=== PATIENT | male | born 1955 | race Caucasian/White ===

== ENCOUNTER 2017-01-29 10:19 | Inpatient (IN) | payer BC ==
[~2017-01-29] VITALS: Ht 195.6 cm; Wt 66.1 kg
[2017-01-29] VITALS (461 sets, daily range): BP systolic 110–125; BP diastolic 82–92; PULSE 85–107; TEMP 97.2–98.2; O2SAT 88–100
[2017-01-29] MEDS ORDERED: ASPIRIN 81M81 MG/TA2 PO (10:25)
[2017-01-29 11:34] LABS: BASO % 0.3 % (0.0-2.0); EOS % 0.3 % (0-4.0); GRAN # 5.5 (1.4-6.5); GRAN % 71.2 % (42.2-75.2); HEMATOCRIT 38.2 % (42.0-52.0); HEMOGLOBIN 12.9 g/dl (13.5-18.0); LYMPH # 1.4 (1.2-3.4); LYMPH % 18.5 % (20.0-51.0); MEAN CELL VOLUME 90 fl (80.0-100.0); MEAN CORPUSCULAR HEMOGLOBIN 30 pg (27.0-31.0); MEAN CORPUSCULAR HGB CONC 34 g/dl (33.0-37.0); MEAN PLATELET VOLUME 11.1 fl (7.4-10.4); MONO # 0.7 (0.1-0.6); MONO % 8.8 % (1.7-9.3); PLATELET COUNT 197 K/mm3 (130-400); RED BLOOD COUNT 4.27 M/mm3 (4.20-5.60); REDCELL DISTRIBUTION WIDTH-CV 18.8 % (11.5-14.5); WHITE BLOOD COUNT 7.7 K/mm3 (4.8-10.8)
[2017-01-29 11:39] LABS: INR 1.1 (0.8-3.0); PROTHROMBIN TIME 12.6 SECONDS (9.7-12.8)
[2017-01-29 11:45] LABS: ADJUSTED CALCIUM 9.7 mg/dL (8.4-10.2); ALANINE AMINOTRANSFERASE 30 U/L (21-72); ALBUMIN 4.3 gm/dL (3.5-5.0); ALKALINE PHOSPHATASE 85 U/L (50-136); ANION GAP 9 mmol/L (7-16); BILIRUBIN,TOTAL 2.4 mg/dL (0.0-1.0); BLOOD UREA NITROGEN 13 mg/dL (9-20); CALCIUM 9.9 mg/dL (8.4-10.2); CARBON DIOXIDE 24 mmol/L (22-30); CHLORIDE 108 mmol/L (98-107); CREATININE, serum 0.81 mg/dL (0.66-1.25); GLUCOSE 85 mg/dL (74-106); POTASSIUM 4.4 mmol/L (3.4-5.0); SODIUM 140 mmol/L (137-145); TOTAL PROTEIN 7.3 gm/dL (6.4-8.2)
[2017-01-29 11:53] LABS: B-TYPE NATRIURETIC PEPTIDE 1460 pg/mL (0-125)
[2017-01-29 12:00] LABS: TROPONIN-I < 0.012 ng/mL (0.000-0.034)
[2017-01-30] VITALS (339 sets, daily range): BP systolic 115–147; BP diastolic 62–93; PULSE 56–109; TEMP 97.4–98.7; O2SAT 92–100
[2017-01-31] VITALS (10 sets, daily range): BP systolic 118–159; BP diastolic 68–91; PULSE 54–127; TEMP 97.7–99.2
[2017-02-01 04:18] VITALS: BP 130/88; PULSE 116; TEMP 98.1
[2017-02-01 07:28] VITALS: BP 123/83; PULSE 100; TEMP 98.1
[2017-02-01 08:23] LABS: INR 1.2 (0.8-3.0); PROTHROMBIN TIME 13.3 SECONDS (9.7-12.8)
[2017-02-01 08:25] LABS: PARTIAL THROMBOPLASTIN TIME 32.7 SECONDS (26.0-37.0)
[2017-02-01 08:27] LABS: CALCIUM 10.2 mg/dL (8.4-10.2); CREATININE, serum 0.91 mg/dL (0.66-1.25); POTASSIUM 4.4 mmol/L (3.4-5.0)
[2017-02-01 12:19] VITALS: BP 121/72; PULSE 59; TEMP 98
[2017-02-01] MEDS ORDERED: BETAPACE 80MG80 MG PO (12:54)
[2017-02-01] MEDS ORDERED: ELIQUIS 5MG PO (12:54)
== END 2017-02-01 14:22 | disposition home or self-care (01) | DRG 308 ==
LOC: COL.ER 10:19 → MEDICAL 12:10 → ICU 12:10 → MEDICAL 01-30 13:00
PROVIDERS: Emergency Medicine; Internal Medicine Cardiovascular Disease
PROC: 5A2204Z Restoration of Cardiac Rhythm, Single (ICD-10-PCS; principal; 2017-01-30)
PROC: 5A2204Z Restoration of Cardiac Rhythm, Single (ICD-10-PCS; 2017-02-01)
DX: I48.0 Paroxysmal atrial fibrillation (principal); J81.0 Acute pulmonary edema; F17.210 Nicotine dependence, cigarettes, uncomplicated
CPT/HCPCS: 99222-AI; 99232-AI; 99233-AI; 99239; A9502; G9654; J1160; J1650; J1940; J2250; J2704; J2785; J3010; J7050; J7120

== ENCOUNTER 2019-02-05 06:10 | Inpatient (IN) | payer BC, MEDICARE ==
[~2019-02-05] VITALS: Ht 195.6 cm; Wt 72.7 kg
[~2019-02-05 06:10] MED LIST: ASPIRIN 81M81 MG/TA2 PO; BETAPACE 80MG80 MG PO; ELIQUIS 5MG PO
[2019-02-05] MEDS ORDERED: ASPIRIN E.C. 8181 MG PO (06:40)
[2019-02-05] MEDS ORDERED: PLAVIX 75MG TAB75 MG PO (06:40)
[2019-02-05] MEDS ORDERED: LIPITOR20 MG PO (06:41)
[2019-02-05 06:54] LABS: HEMOGLOBIN 11.1 g/dl (13.5-18.0); MEAN CELL VOLUME 88 fl (80.0-100.0); MEAN CORPUSCULAR HEMOGLOBIN 30 pg (27.0-31.0); MEAN CORPUSCULAR HGB CONC 34 g/dl (33.0-37.0); MEAN PLATELET VOLUME 11.2 fl (7.4-10.4); PLATELET COUNT 202 K/mm3 (130-400); REDCELL DISTRIBUTION WIDTH-CV 18.2 % (11.5-14.5)
[2019-02-05 06:58] LABS: INR 1.2 (0.8-3.0); PROTHROMBIN TIME 14.5 SECONDS (9.7-12.8)
[2019-02-05 07:00] LABS: PARTIAL THROMBOPLASTIN TIME 34.9 SECONDS (26.0-37.0)
[2019-02-05 07:02] LABS: HEMATOCRIT 32.6 % (42.0-52.0)
[2019-02-05 07:03] LABS: ALBUMIN 4.4 gm/dL (3.5-5.0); BILIRUBIN,TOTAL 1.1 mg/dL (0.0-1.0); CALCIUM 9.9 mg/dL (8.4-10.2); CREATININE, serum 0.74 (0.66-1.25); MAGNESIUM 1.7 mg/dL (1.6-2.3); POTASSIUM 4.5 mmol/L (3.4-5.0); TOTAL PROTEIN 7.3 gm/dL (6.4-8.2)
[2019-02-05 07:53] LABS: BAND 3 % (0-10); EOSINOPHIL 1 % (0-4); NEUTROPHILS 65 % (42.0-75.2)
[2019-02-05 07:54] LABS: LYMPHOCYTE 25 % (20.0-51.0)
[2019-02-05 07:56] LABS: ANISOCYTOSIS 2+; OVALOCYTES 1+
[2019-02-05 07:57] LABS: PLATELET ESTIMATE NORMAL (NORMAL)
[2019-02-05 08:23] LABS: COLLECTION METHOD CLEAN CATCH
[2019-02-05 08:28] LABS: PH 5 (5-8); SQUAMOUS EPITHELIAL None Seen /hpf; URINE APPEARANCE Clear; URINE BACTERIA None Seen /hpf; URINE BILIRUBIN Negative (NEGATIVE); URINE BLOOD Negative (NEGATIVE); URINE COLOR Straw; URINE GLUCOSE Negative (NEGATIVE); URINE KETONE Negative (NEGATIVE); URINE LEUKOCYTE ESTERASE Negative (NEGATIVE); URINE NITRATE Negative (NEGATIVE); URINE PROTEIN(semi-quant) Negative (NEGATIVE); URINE RBC 0-2 /hpf; URINE UROBILINOGEN Negative (NEGATIVE)
--- NOTE | 2019-02-05 13:00 | NUR ---
Pt admitted to medical unit, arrives to rm [id number] from Endo following procedure. Pt awake and alert, oriented x 4, denies pain or other c/o. Gag reflex intact. IVF's infusing to gravity to left AC site without s/s of complications. POC reviewed with pt regarding bowel prep for AM procedure and NPO after midnight. No further needs reported. Call light in reach.
[2019-02-05 16:33] LABS: HEMATOCRIT 26.3 % (42.0-52.0); HEMOGLOBIN 8.7 g/dl (13.5-18.0)
[2019-02-05 17:35] VITALS: BP 123/55; PULSE 55; TEMP 97.7
--- NOTE | 2019-02-05 18:20 | NUR ---
Pt resting in bed, bowel prep started. Pt verbalizes understanding of POC, agrees to call if feeling nausea, dizziness, or lightheaded. No further needs reported. Call light in reach.
[2019-02-05 20:00] VITALS: BP 129/61; PULSE 61; TEMP 97.8
[2019-02-06] VITALS (9 sets, daily range): BP systolic 105–141; BP diastolic 41–622; PULSE 56–74; TEMP 97.5–98.7
--- NOTE | 2019-02-06 00:09 | NUR ---
Patient was able to drink half of go lytly. States he does not want to drink anymore. Resting in bed. Call light within reach, will continue to monitor
--- NOTE | 2019-02-06 03:39 | NUR ---
Patient resting in bed. No complaints at this time. Denies pain. Call light within reach and will continue to monitor
[2019-02-06 07:05] LABS: BASO % 0.4 % (0.0-2.0); EOS # 0.1 (0.0-0.7); EOS % 1.2 % (0-4.0); GRAN # 3.2 (1.4-6.5); GRAN % 66.3 % (42.2-75.2); LYMPH # 1.2 (1.2-3.4); LYMPH % 24.1 % (20.0-51.0); MEAN CELL VOLUME 90 fl (80.0-100.0); MEAN CORPUSCULAR HGB CONC 33 g/dl (33.0-37.0); MEAN PLATELET VOLUME 11.3 fl (7.4-10.4); MONO # 0.4 (0.1-0.6); MONO % 7.4 % (1.7-9.3); PLATELET COUNT 173 K/mm3 (130-400); RED BLOOD COUNT 2.77 M/mm3 (4.20-5.60); REDCELL DISTRIBUTION WIDTH-CV 18.1 % (11.5-14.5)
[2019-02-06 07:15] LABS: HEMATOCRIT 24.8 % (42.0-52.0); HEMOGLOBIN 8.1 g/dl (13.5-18.0); MEAN CORPUSCULAR HEMOGLOBIN 29 pg (27.0-31.0)
--- NOTE | 2019-02-06 07:15 | NUR ---
Pt to endo for procedure via cart accompanied by JARRED Nunez and student nurse.
--- NOTE | 2019-02-06 07:15 | NUR ---
Pt resting in bed. Assessment charted. Abdomen soft, bowel sounds x4. Denies c/o pain. Pt on NPO status for colonoscopy this am. IVF infusing of NS @ 125 mL/hr. No redness to IV site. @ bedside.
[2019-02-06 07:17] LABS: CALCIUM 8.7 mg/dL (8.4-10.2); CREATININE, serum 0.64 (0.66-1.25); POTASSIUM 4.7 mmol/L (3.4-5.0)
--- NOTE | 2019-02-06 07:25 | NUR ---
Pt. to colonoscopy
--- NOTE | 2019-02-06 08:45 | NUR ---
Returned to . #[id number]. Pt. resting quietly. VSS. @ side
--- NOTE | 2019-02-06 08:45 | NUR ---
Pt back to room from endoscopy following procedure via cart, student nurse and pt's at bedside. Pt drowsy but alert to stimuli, oriented x 3. Assessment entered by student nurse reviewed and agreed by this nurse. VSS. POC reviewed with pt regarding advancement of diet. No further needs reported. Call light in reach.
--- NOTE | 2019-02-06 09:38 | NUR ---
Alisson met with the patient and his to discuss discharge planning. Patient lives with his , Kaycee (ph#[phone]) in [place]. Patient sees Dr. Tai Grajeda for primary care and obtains his medications from [facility] pharmacy. Patient reports no issues with obtaining his medications. Patient states he has no DME and he is independent with ADLs. Patient does not have DPOA-HC set up but was interested in taking home the form. KRYSTIN provided the form to patient's . No additional needs at this time. KRYSTIN will continue to follow.
--- NOTE | 2019-02-06 10:54 | NUR ---
Initial visit; Patient thanked [employer] Lip Wetter for looking in on him and offering God's blessings.
--- NOTE | 2019-02-06 20:59 | NUR ---
Report received from JARRED Shankar. Patient resting in bed. has left for the night. Assessment complete. Pulses strong bilaterally. Bowels active x4. Lungs CTA. IV patent, flushed. PM medications given. Patient denies having any pain at this time. Patient inquiring about what time he may possibly be discharged in the morning. This nurse informed that it all depends on what time the doctors round in the morning. He stated an understanding. Patient denies any further needs at this time. Call light within reach.
[2019-02-07 00:14] VITALS: BP 109/49; PULSE 63; TEMP 98
[2019-02-07 04:54] VITALS: BP 141/61; PULSE 63; TEMP 97.7
--- NOTE | 2019-02-07 05:49 | NUR ---
Patient had uneventful night. Resting in bed. Denies pain throughout night. Vitals all within normal limits. Call light within reach.
--- NOTE | 2019-02-07 07:09 | NUR ---
Report given to JARRED Maguire
[2019-02-07 07:15] VITALS: BP 127/64; PULSE 60; TEMP 97.9
--- NOTE | 2019-02-07 07:20 | NUR ---
Pt. resting in bed. Assessment charted. No c/o pain. Abdomen soft, bowl sounds x4. Telemety on. INT site intact. @ bedside.
--- NOTE | 2019-02-07 07:59 | NUR ---
INT site wrapped, telemetry unhooked. Shower taken, linens changed, oral care provided. Tolerates activity well.
[2019-02-07 10:56] VITALS: BP 124/61; PULSE 60; TEMP 97.9
[2019-02-07 11:33] LABS: BASO % 0.4 % (0.0-2.0); EOS % 0.4 % (0-4.0); GRAN % 63.2 % (42.2-75.2); LYMPH # 1.1 (1.2-3.4); LYMPH % 23.3 % (20.0-51.0); MEAN CELL VOLUME 88 fl (80.0-100.0); MEAN CORPUSCULAR HGB CONC 34 g/dl (33.0-37.0); MEAN PLATELET VOLUME 10.6 fl (7.4-10.4); MONO # 0.6 (0.1-0.6); MONO % 11.8 % (1.7-9.3); PLATELET COUNT 184 K/mm3 (130-400); RED BLOOD COUNT 2.96 M/mm3 (4.20-5.60); REDCELL DISTRIBUTION WIDTH-CV 17.9 % (11.5-14.5)
[2019-02-07 11:49] LABS: HEMATOCRIT 26.1 % (42.0-52.0); HEMOGLOBIN 8.8 g/dl (13.5-18.0); MEAN CORPUSCULAR HEMOGLOBIN 30 pg (27.0-31.0)
[2019-02-07] MEDS ORDERED: FERROUS SU325 MG/TAB PO (14:08)
--- NOTE | 2019-02-07 15:21 | NUR ---
GAVE DISCHARGE INSTRUCTIONS, WORK RELEASE SCRIPT AND FOLLOW UP APTS. ANSWERED ALL QUESTIONS/CONCERNS. DC'D IV AND COVERED SITE WITH GAUZE & COBAN. TELE OFF. PATIENT'S FAMILY AT BEDSIDE FOR DISCHARGE VIA POV.
== END 2019-02-07 15:32 | disposition home or self-care (01) | DRG 379 ==
LOC: COL.ER 06:10 → MEDICAL 07:32
PROVIDERS: Emergency Medicine; Internal Medicine Gastroenterology; Physician Assistant; ADMIT Internal Medicine
PROC: 0DJ08ZZ Inspection of Upper Intestinal Tract, Via Natural or Artificial Opening Endoscopic (ICD-10-PCS; principal; 2019-02-05 11:00)
PROC: 0DJD8ZZ Inspection of Lower Intestinal Tract, Via Natural or Artificial Opening Endoscopic (ICD-10-PCS; 2019-02-06)
DX: K57.91 Diverticulosis of intestine, part unspecified, without perforation or abscess with bleeding (principal); I73.9 Peripheral vascular disease, unspecified; I48.91 Unspecified atrial fibrillation; E78.5 Hyperlipidemia, unspecified; D50.0 Iron deficiency anemia secondary to blood loss (chronic); D12.5 Benign neoplasm of sigmoid colon; F17.210 Nicotine dependence, cigarettes, uncomplicated; Z79.82 Long term (current) use of aspirin; Z79.01 Long term (current) use of anticoagulants; Z79.02 Long term (current) use of antithrombotics/antiplatelets; Z95.820 Peripheral vascular angioplasty status with implants and grafts
CPT/HCPCS: 99222-AI; 99232-AI; 99239; C9113; J2250; J2405; J3010; J7030

== ENCOUNTER 2019-05-14 06:06 | Day surgery (SDC) | payer BC, MEDICARE ==
[~2019-05-14] VITALS: Ht 195.6 cm; Wt 70.7 kg
[~2019-05-14 06:06] MED LIST changes: +ASPIRIN E.C. 8181 MG PO; +FERROUS SU325 MG/TAB PO; +LIPITOR20 MG PO; +PLAVIX 75MG TAB75 MG PO
[2019-05-14 06:32] VITALS: BP 157/73; PULSE 57; TEMP 98.5
[2019-05-14] MEDS ORDERED: PROTONIX 40MG T40 MG PO (06:32)
[2019-05-14] MEDS ORDERED: ASPIRIN 81M81 MG/TA2 PO (06:32)
[2019-05-14 07:45] VITALS: BP 126/65; BP 126/68; PULSE 60; PULSE 64; TEMP 97.5; TEMP 97.7
--- NOTE | 2019-05-14 07:45 | NUR ---
Patient arrives back to NVC alert, denies pain or nausea. Patient ambulates from cart to chair with stand by assist and without any complications. Patient monitor applied, vitals stable. Patient's spouse at chair side.
--- NOTE | 2019-05-14 07:45 | NUR ---
Pt to [facility] [place] [facility] via cart. Pt drowsy, but awake. Pt ambulates to recliner with stand by assistance. Pt denies pain or nausea. in room. Coffee and muffin given per pt request. Will continue to monitor. Call light within reach.
--- NOTE | 2019-05-14 07:50 | NUR ---
Dr Woods into see patient at this time to go over results.
--- NOTE | 2019-05-14 07:55 | NUR ---
Patient given muffin and coffee at this time.
[2019-05-14 08:00] VITALS: BP 135/71; PULSE 56; PULSE 60
--- NOTE | 2019-05-14 08:00 | NUR ---
Pt continues to rest. Tolerating food and fluids without difficulties. Call light within reach.
[2019-05-14 08:02] VITALS: TEMP 97.5
[2019-05-14 08:15] VITALS: BP 128/70; PULSE 56
--- NOTE | 2019-05-14 08:15 | NUR ---
Pt continues to rest. Denies needs. Call light within reach
--- NOTE | 2019-05-14 08:20 | NUR ---
Discharge instructions reviewed. Pt voices understanding. IV site discontinued with all parts intact. Pt up to dress. Call light within reach.
--- NOTE | 2019-05-14 08:30 | NUR ---
Pt escorted to private car via wheel chair. Pt accompanied home by his .
== END 2019-05-14 08:30 | disposition home or self-care (01) ==
LOC: SDCO 06:06
DX: D12.2 Benign neoplasm of ascending colon (principal); K57.30 Diverticulosis of large intestine without perforation or abscess without bleeding; I48.91 Unspecified atrial fibrillation; Z79.01 Long term (current) use of anticoagulants; Z79.02 Long term (current) use of antithrombotics/antiplatelets; Z79.82 Long term (current) use of aspirin; I73.9 Peripheral vascular disease, unspecified; F17.210 Nicotine dependence, cigarettes, uncomplicated
CPT/HCPCS: J7120

== ENCOUNTER 2023-08-24 09:17 | Outpatient (RCR) | payer MEDICARE ==
[2023-08-24] VITALS (9 sets, daily range): BP systolic 120–144; BP diastolic 51–70; PULSE 55–68; TEMP 97.1–97.3
[~2023-08-24 09:17] MED LIST changes: +DUO-KAPS1 CAP PO; +FOLIC ACID 11 MG/TA1 PO; +MONODOX100 PO; +NORVASC 10MG10 MG PO; +PACERONE400 MG PO; +PROTONIX 40MG T40 MG PO; +THIAMINE 1100 MG/TAB PO
[2023-08-24] MEDS ORDERED: Acetaminophen 325 MG TAB PO SCH (09:45)
[2023-08-24] MEDS ORDERED: NS 250 ML IV SCH (09:45)
[2023-08-24] MEDS ORDERED: diphenhydrAMINE 25 MG CAP PO SCH (09:45)
--- NOTE | 2023-08-24 14:58 | NUR ---
PT TOLERATED INFUSION WELL AND VS REMAINED WITHIN NORMAL LIMITS. PT FREE FROM ACUTE CONCERNS AND COMPLAINTS UPON DISCHARGE AND AMBULATED TO [facility] UPON DISCHARGE. IV DISCONTINUED.
== END 2023-08-24 15:00 | disposition home or self-care (01) ==
LOC: EUO 09:17
DX: D75.81 Myelofibrosis (principal)
CPT/HCPCS: J7050; P9016

== ENCOUNTER → 2023-11-21 | Outpatient (CLI) | payer MEDICARE ==
[~2023-11-21] MED LIST changes: +PREDNISONE10 MG PO; +[UNRECOGNIZED DRUG - OTHER] PO
== END ==
LOC: COL.CARD 07:32
DX: D75.81 Myelofibrosis (principal)

== ENCOUNTER 2023-12-15 12:48 | Outpatient (RCR) | payer MEDICARE ==
[2023-12-15] MEDS ORDERED: diphenhydrAMINE 25 MG CAP PO SCH (13:30)
[2023-12-15] MEDS ORDERED: Acetaminophen 325 MG TAB PO SCH (13:30)
[2023-12-15] MEDS ORDERED: NS 250 ML IV SCH (13:30)
--- NOTE | 2023-12-15 14:00 | NUR ---
INT starte by JUAN JOSÉ Mitchell after failed attempts by this nurse x 2.
[2023-12-15 14:59] VITALS: BP 123/76; PULSE 74; TEMP 97.9
[2023-12-15 15:18] VITALS: BP 131/68; PULSE 73; TEMP 97.8
[2023-12-15 15:33] VITALS: BP 129/68; PULSE 71; TEMP 97.3
[2023-12-15 16:03] VITALS: BP 134/68; PULSE 70; TEMP 97.7
[2023-12-15 16:15] VITALS: BP 135/67; PULSE 73; TEMP 97.7
== END 2023-12-15 16:34 ==
LOC: EUO 12:48
DX: D69.6 Thrombocytopenia, unspecified (principal)
CPT/HCPCS: J7050; P9035

== ENCOUNTER 2024-01-06 07:45 | Outpatient (RCR) | payer MEDICARE ==
[2024-01-06] VITALS (9 sets, daily range): BP systolic 126–150; BP diastolic 65–76; PULSE 60–68; TEMP 97.6–98.1
[~2024-01-06] VITALS: Ht 195.6 cm; Wt 55.7 kg
[2024-01-06] MEDS ORDERED: Acetaminophen 325 MG TAB PO SCH (08:15)
[2024-01-06] MEDS ORDERED: NS 250 ML IV SCH (08:15)
[2024-01-06] MEDS ORDERED: diphenhydrAMINE 25 MG CAP PO SCH (08:15)
--- NOTE | 2024-01-06 09:23 | NUR ---
Pt has been scheduled to recieve port-a-cath placement on 01/20/[address] Bustos's office.
== END 2024-01-06 14:05 ==
LOC: EUO 07:45
DX: D75.81 Myelofibrosis (principal)
CPT/HCPCS: J7050; P9040

== ENCOUNTER 2024-01-19 13:00 | Outpatient (RCR) | payer MEDICARE ==
[2024-01-18 08:55] VITALS: BP 165/76; PULSE 80; TEMP 98.1
[2024-01-18 09:18] LABS: MEAN CELL VOLUME 88 fl (80.0-100.0); MEAN CORPUSCULAR HGB CONC 34 g/dl (33.0-37.0); RED BLOOD COUNT 2.34 M/mm3 (4.20-5.60); REDCELL DISTRIBUTION WIDTH-CV 18.3 % (11.5-14.5)
[2024-01-18 09:22] LABS: HEMATOCRIT 20.6 % (42.0-52.0); HEMOGLOBIN 6.9 g/dl (13.5-18.0); MEAN CORPUSCULAR HEMOGLOBIN 29 pg (27-31)
[2024-01-18 09:23] LABS: ALBUMIN 3.4 g/dL (3.4-4.8); BILIRUBIN,TOTAL 1.9 mg/dL (0.2-1.2); CALCIUM 9.4 mg/dL (8.4-10.2); CREATININE, serum 0.76 mg/dL (0.72-1.25); PLATELET COUNT 14 K/mm3 (130-400); POTASSIUM 3.9 mEq/L (3.5-4.5); TOTAL PROTEIN 6.5 g/dl (6.2-8.1)
--- NOTE | 2024-01-18 10:26 | NUR ---
PT SENT HOME WITH IV IN PLACE IN LEFT WRIST PER DR. CORTES. PT WILL RETURN TO [facility] TOMORROW FOR 2 UNITS OF PRBC AND 1 UNIT OF PLATELETS PER DR LOPEZ'S OFFICE. LABS DRAWN TODAY UPON IV START.
[2024-01-19] VITALS (11 sets, daily range): BP systolic 110–147; BP diastolic 60–81; PULSE 62–85; TEMP 97.9–98.6
[2024-01-19] MEDS ORDERED: diphenhydrAMINE 25 MG CAP PO SCH (13:15)
[2024-01-19] MEDS ORDERED: Acetaminophen 325 MG TAB PO SCH (13:15)
[2024-01-19] MEDS ORDERED: NS 250 ML IV SCH (13:15)
[2024-01-20] MEDS ORDERED: VONJO100 MG PO (07:36)
[2024-01-20] MEDS ORDERED: NATURE'S BLEND100 M2 PO (07:41)
== END 2024-01-19 18:19 | disposition home or self-care (01) ==
LOC: EUO 13:00
PROVIDERS: Surgery
DX: D69.6 Thrombocytopenia, unspecified (principal); D75.81 Myelofibrosis
CPT/HCPCS: J7050; P9035; P9040

== ENCOUNTER 2024-01-20 06:31 | Day surgery (SDC) | payer MEDICARE ==
[~2024-01-20] VITALS: Ht 195.6 cm; Wt 58.7 kg
[~2024-01-20 06:31] MED LIST changes: +Acetaminophen 325 MG TAB PO SCH; +LR 1,000 ML IV SCH; +NS 250 ML IV SCH; +diphenhydrAMINE 25 MG CAP PO SCH
[2024-01-20] MEDS ORDERED: HYDROmorphone 1 MG/1 ML SYRINGE [PACU/SDC ONLY] IV PRN (07:15)
[2024-01-20] MEDS ORDERED: Ondansetron 4 MG/2 ML VIAL IV PRN (07:15)
[2024-01-20] MEDS ORDERED: hydrALAZINE 20 MG/ML 1 ML VIAL IV PRN (07:15)
[2024-01-20] MEDS ORDERED: Meperidine 50 MG/ML 1 ML VIAL IV PRN (07:15)
[2024-01-20] MEDS ORDERED: fentaNYL 50 MCG/ML 1 ML SYRINGE/VIAL [PACU/SDC ONLY] IV PRN (07:15)
[2024-01-20 07:35] LABS: MEAN CORPUSCULAR HGB CONC 34 g/dl (33.0-37.0); RED BLOOD COUNT 2.62 M/mm3 (4.20-5.60); REDCELL DISTRIBUTION WIDTH-CV 19.2 % (11.5-14.5)
[2024-01-20] MEDS ORDERED: VONJO100 MG PO (07:36)
[2024-01-20 07:39] LABS: HEMATOCRIT 21.8 % (42.0-52.0); HEMOGLOBIN 7.5 g/dl (13.5-18.0); MEAN CELL VOLUME 83 fl (80.0-100.0); MEAN CORPUSCULAR HEMOGLOBIN 29 pg (27-31)
[2024-01-20 07:40] LABS: PLATELET COUNT 17 K/mm3 (130-400)
[2024-01-20] MEDS ORDERED: NATURE'S BLEND100 M2 PO (07:41)
--- NOTE | 2024-01-20 07:45 | NUR ---
Dr. Bustos called at 0659 regarding platelet orders. CBC order received at that time. CBC results called to Dr. Bustos at 0741. Dr. Bustos plans to consult with Dr. Gerardo and then come talk with the patient, likely to cancel procedure today. Pt resting in cart at this time, warm blanket given. at bedside. Questions answered up to this point. Call light within reach, cart in low position. Transfusion/ procedure consent signed. Admission assessments completed. Pt admitted with 20g IV site to left wrist. 20G IV inserted into RAC, blood specimen obtained from this site.
[2024-01-20 07:47] VITALS: BP 139/60; PULSE 71; TEMP 98.3
[2024-01-20 08:14] LABS: BAND 25 % (0-10); METAMYELOCYTE 3 % (0-0); MYELOCYTE 5 % (0-0); NEUTROPHILS 34 % (42.0-75.2); NUCLEATED RED BLOOD CELL 4 (0-6)
[2024-01-20 08:15] LABS: ANISOCYTOSIS 3+; PLATELET ESTIMATE DECREASED (NORMAL)
[2024-01-20 08:18] LABS: LYMPHOCYTE 28 % (20.0-51.0)
--- NOTE | 2024-01-20 08:59 | NUR ---
Dr. Bustos speaks with Dr. Gerardo, then comes to see patient. Orders received to place and PICC line and cancel portacath procedure. Dr. Bustos discusses this at length with patient and . Paula MERRITT RN here to place PICC line. Per Dr. Bustos, continue with planned transfusion prior to discharge.
[2024-01-20 10:38] VITALS: BP 147/60; PULSE 65; TEMP 98.1
--- NOTE | 2024-01-20 10:42 | NUR ---
Unit of platelets retrieved from lab. NS infusing to purple port of PICC line to RUE at 30ml/hr prior. Unit of platelets confirmed with JARRED Lara. Pt aware of s/s of transfusion reaction. Knows when to call for assistance. Will stay with patient for first 15 minutes of transfusion. Call light within reach.
--- NOTE | 2024-01-20 10:47 | NUR ---
PICC line teaching was done by RENÉ Mitchell RN. Education packet with patient. Patient has no questions regarding this. Dressing change to be done on Tuesday when patiet is here for lab draw. Peripheral IV sites removed by Paula following PICC line insertion.
[2024-01-20 10:56] VITALS: BP 145/63; PULSE 66; TEMP 98
[2024-01-20 11:11] VITALS: BP 125/50; PULSE 69; TEMP 98
[2024-01-20 11:41] VITALS: BP 142/76; PULSE 68; TEMP 98.1
[2024-01-20 12:09] VITALS: BP 131/65; PULSE 63; TEMP 98.2
--- NOTE | 2024-01-20 12:15 | NUR ---
Transfusion completed. PICC line flushed. Pt getting dressed at this time. Pt and have no questions regarding PICC line. They plan to return on Tuesday for dressing change with AIVS.
--- NOTE | 2024-01-20 12:21 | NUR ---
Pt discharges at this time to wifes car.
[2024-01-21 12:37] LABS: PATHOLOGY DIFF REVIEW OK
== END 2024-01-20 12:20 | disposition home or self-care (01) ==
LOC: SDCO 06:31
PROVIDERS: Surgery
DX: D64.9 Anemia, unspecified (principal); D69.6 Thrombocytopenia, unspecified; D75.81 Myelofibrosis; D63.8 Anemia in other chronic diseases classified elsewhere; I48.91 Unspecified atrial fibrillation; K92.2 Gastrointestinal hemorrhage, unspecified; J18.1 Lobar pneumonia, unspecified organism; F17.210 Nicotine dependence, cigarettes, uncomplicated
CPT/HCPCS: C1751; J7120; P9035; P9040